=== PATIENT | female | born 1995 | race Hispanic/Latino ===

== ENCOUNTER 2017-06-01 08:35 | Day surgery (SDC) | payer OTHER ==
[~2017-06-01] VITALS: Ht 162.6 cm; Wt 66.9 kg
[~2017-06-01 08:35] MED LIST: SODIUM CHLORIDE 0.9% 1000ML 1,000 ML IV ONE
[2017-06-01 08:44] VITALS: BP 112/62
[2017-06-01] MEDS ORDERED: FENTANYL CITRATE PF 50 MCG/1 ML 2ML VIAL ONE (10:01)
== END 2017-06-01 10:51 | disposition home or self-care (01) ==
LOC: DAH 08:35
PROVIDERS: ATTEND Internal Medicine Gastroenterology
DX: K21.9 Gastro-esophageal reflux disease without esophagitis (principal); J45.909 Unspecified asthma, uncomplicated; Z98.890 Other specified postprocedural states
CPT/HCPCS: 43235; 81025; A4606; J3010; J7030; G9654